=== PATIENT | female | born 1975 | race Caucasian/White ===

== ENCOUNTER 2017-08-20 00:09 | Emergency (ER) | payer BC ==
[2017-08-20] MEDS ORDERED: SILVER SULFADIAZINE 25 GM CREAM TOP ONE (00:16)
--- NOTE | 2017-08-20 00:22 | Emergency Department Record ---
History of Present Illness - General Stated complaint: BURN ON FINGER/SWOLLEN AND RED Time Seen by Provider: 08/20/17 00:11 Source: Patient Mode of Arrival: Ambulatory Limitations: No limitations - History of Present Illness Initial comments: 42 yo female presents to ED for evaluation of a hot glue burn to the the left little finger dorsally that occurred 2 days ago. Patient reports that she has been applying neosporin to the burn, but was concerned about increased swelling tonight. Patient denies numbness, tingling, or inability to flex/extend her little finger. Patient denies health problems at her baseline. MD Complaint: Burn Onset/Timin -: Days(s) Smoke Inhalation: None Place: Home Location - Extremities: Left: Hand Severity: Moderate Associated Symptoms: Denies other symptoms - Related Data Previous Rx's Medication Instructions Recorded Silver Sulfadiazine [Ssd] 1 apply TP TID #25 gm 08/20/17 Allergies Allergy/AdvReac Type Severity Reaction Status Date / Time No Known Drug Allergies Allergy Verified 08/20/17 00:23 Review of Systems Constitutional: Denies: Chills, Fever, Malaise, Night sweats Eyes: Denies: Eye discharge, Eye pain ENT: Denies: Congestion, Ear pain, Epistaxis Respiratory: Denies: Cough, Dyspnea Cardiovascular: Denies: Chest pain, Dyspnea on exertion Endocrine: Denies: Fatigue, Heat or cold intolerance Gastrointestinal: Denies: Abdominal pain, Nausea, Vomiting Genitourinary: Denies: Incontinence, Retention Musculoskeletal: Denies: Arthralgia, Back pain, Gout, Joint swelling Skin: Reports: Other (burn to the left little finger). Denies: Bruising, Change in color Neurological: Denies: Abnormal gait, Confusion, Headache, Seizure Psychiatric: Denies: Anxiety Hematological/Lymphatic: Denies: Anemia, Blood Clots Physical Exam - General General Appearance: Alert, Oriented x3, Cooperative, No acute distress Limitations: No limitations - Head Head exam: Atraumatic, Normocephalic, Normal inspection Head exam detail: negative: Abrasion, Contusion, Molina's sign, General tenderness, Hematoma, Laceration - Eye Eye exam: Normal appearance. negative: Conjunctival injection, Periorbital swelling, Periorbital tenderness, Scleral icterus - ENT Ear exam: negative: Auricular hematoma, Auricular trauma Nasal Exam: negative: Active bleeding, Discharge, Dried blood, Foreign body Mouth exam: negative: Drooling, Laceration, Muffled voice, Tongue elevation - Neck Neck exam: Normal inspection. negative: Meningismus - Respiratory Respiratory exam: Normal lung sounds bilaterally. negative: Rales, Respiratory distress, Rhonchi, Stridor - Cardiovascular Cardiovascular Exam: Regular rate, Normal rhythm, Normal heart sounds - GI/Abdominal GI/Abdominal exam: Soft. negative: Rebound, Rigid, Tenderness - Rectal Rectal exam: Deferred - exam: Deferred - Extremities Extremities exam: Tenderness, Other (1.0 cm superficail burn to the dorsum over the left little finger dorsally overlying the middle phalanx, mild surrounding erythema c.w healing wound. No drainage present, no firmness to the digit, no knavel's signs on examination. ). negative: Calf tenderness, Pedal edema - Back Back exam: Denies: CVA tenderness (R), CVA tenderness (L) - Neurological Neurological exam: Alert, Normal gait, Oriented X3 - Psychiatric Psychiatric exam: Normal affect, Normal mood - Skin Skin exam: Normal color. negative: Abrasion Type of lesion: negative: abrasion Course - Reevaluation(s) Reevaluation #1: 08/20/17 00:21 MDM: No evidence of infection or tenosynovitis on examination, will treat with silvadene ointment for her burn injury. Disposition Disposition: Discharge Clinical Impression: Second degree burn of finger Qualifiers: Encounter type: initial encounter Laterality: left Qualified Code(s): T23.222A - Burn of second degree of single left finger (nail) except thumb, initial encounter Disposition: Home, Self-Care Condition: (2) Stable Instructions: Second Degree Burn (ED) Additional Instructions: Return to ED if your symptoms worsen or if you have any concerns. Silvadene ointment as directed. Follow-up with your family doctor in 3-5 days as directed. Prescriptions: Silver Sulfadiazine [Ssd] 1 apply TP TID #25 gm Forms: Patient Portal Access Time of Disposition: 00:24 Quality - Quality Measures Quality Measures: N/A - Blood Pressure Screening Does Patient Have Any of the Following: No Blood Pressure Classification: Normal BP Reading Systolic Measurement: 119 Diastolic Measurement: 79 Screening for High Blood Pressure: < Normal BP, F/U Not Required > [[id number]]
== END 2017-08-20 00:39 | disposition home or self-care (01) ==
LOC: ER 00:09
DX: T23.222A Burn of second degree of single left finger (nail) except thumb, initial encounter (principal); X19.XXXA Contact with other heat and hot substances, initial encounter; Y92.009 Unspecified place in unspecified non-institutional (private) residence as the place of occurrence of the external cause
CPT/HCPCS: 99282